=== PATIENT | male | born 1980 | race Caucasian/White ===

== ENCOUNTER → 2021-04-05 | Outpatient (CLI) | payer BC ==
[2021-04-05 18:15] LABS: African American GFR (CKD) 130.4 (60.0-200.0); Albumin 4.6 g/dL (3.8-4.9); Albumin/Globulin Ratio 1.53 (1.60-3.17); Anion Gap 11.8 mmol/L (10.00-18.00); BUN/Creat Ratio 24.5 Ratio (12.00-20.00); Blood Urea Nitrogen 19.6 mg/dL (9.0-27.0); Calcium 9.2 mg/dL (8.7-10.3); Carbon Dioxide 25.2 mmol/L (20.0-27.5); Non-African American GFR(CKD) 112.5 (60.0-200.0); Potassium 4.5 mmol/L (3.5-5.5); Total Bilirubin 0.3 mg/dL (0.30-1.20); Total Protein 7.6 g/dL (6.2-8.2)
[2021-04-05 18:23] LABS: HCT 48.7 % (39.6-50.0); HGB 15.5 g/dL (13.0-17.0); MCH 30.3 pg (27.0-32.0); MCHC 31.8 g/dL (32.0-37.0); MCV 95.1 fL (80.0-97.0); Mean Platelet Volume 10.4 fL (9.5-12.2); NRBC Per 100 WBC 0 /100 WBCS (0.0-0.0); Platelet Count 249 X 10*3/uL (140-440); RBC 5.12 X 10*6/uL (4.40-5.60); RDW 12.8 % (11.5-14.5)
== END | disposition home or self-care (01) ==
LOC: LABWHC1 11:48
PROVIDERS: ATTEND Family Medicine
DX: U07.1 COVID-19 (principal); R20.2 Paresthesia of skin
CPT/HCPCS: 36415; 80053; 85027; 85379

== ENCOUNTER → 2021-06-05 | Outpatient (CLI) | payer BC ==
--- NOTE | 2021-06-05 12:04 | P.STRESS ---
- Stress Test Note Stress Test Results/Findings: Exam Performed: NM stress cardiolite complete Exam Date: 06/05/21 Reason for Exam: FATIGUE Height: 5 ft 6 in Weight: 96.4 kg Protocol: CARDIOLITE CHRISTA Stage: 4 Duration of Exercise: 10:00 Resting Heart Rate: 57 Resting Blood Pressure: 117/72 Maximum Achieved Heart Rate: 169 Maximum Achieved Blood Pressure: 179/63 85% PMHR: 154 100% PMHR: 181 METS: 12.1 Technologist Comment: Stress Test Results/Findings: Patient underwent exercise stress Cardiolite with a Christa protocol treadmill stress test. Patient exercised into Stage 4 for a total of 10 minutes reaching a total of 12.1 METS. Patient's maximum heart rate was 169 which represented 93% age-predicted maximum heart rate. Stress EKG findings: At baseline patient's EKG showed normal sinus rhythm, normal axis, no significant ST-T wave abnormalities. At peak exercise, EKG showed no significant change from baseline. Conclusions: 1. Normal EKG response to exercise without evidence of inducible ischemia. 2. Excellent exercise capacity. 3. Nuclear portion to be reported separately.
--- NOTE | 2021-06-05 16:38 | NM ---
EXAMINATION TYPE: NM stress cardiolite complete DATE OF EXAM: 06/05/2021 COMPARISON: NONE HISTORY: Angina pectoris TECHNIQUE: After the intravenous administration of 9.7 mCi Tc 99m Sestamibi - Cardiolite resting SPE CT images acquired 70 minutes post injection. At peak stress 23.7 mCi Tc 99m Sestamibi - Stress images obtained 10 minutes post injection The patient was stressed with 0.4mg Lexiscan. FINDINGS: There is mild diminished radiotracer along the anterior wall on both resting and stress images. Suspi cious defect to account for artifact is not identified. Correlate with EKG changes. Mild anterior wal l prior infarct may be present. No reversible stress defects on Spect images Wall motion is normal. There may be some mild bulge of the anterior wall on the wall motion imaging. The wall motion however remains within normal limits. Ejection fraction is calculated to be 66 %. IMPRESSION: 1. Clinical consideration for mild prior anterior wall infarct. Correlate with EKG changes 2. No stress-induced ischemic changes identified. 3. Possible bulge along the mid anterior wall. Consider a echocardiogram correlation.
== END | disposition home or self-care (01) ==
LOC: RADNMMAIN 07:45
PROVIDERS: ATTEND Family Medicine
DX: I20.9 Angina pectoris, unspecified (principal)
CPT/HCPCS: 93017; 78452; A9500